=== PATIENT | male | born 1945 | race Caucasian/White ===

== ENCOUNTER 2018-01-12 06:13 | Inpatient (IN) | payer OTHER, MEDICARE ==
[2017-12-29 11:17] VITALS: BMI 35.0
[2017-12-29 11:17] LABS: BASO % 0.3 %; BASO ABS # 0.02 K/uL (0-0.2); EOS % 1.1 %; EOS ABS # 0.07 K/uL (0-0.5); HEMATOCRIT 46.3 % (42-52); HEMOGLOBIN 15.3 g/dL (14.0-18.0); IG# 0.02 K/uL (0.00-0.02); LYMPH % 28.6 %; LYMPH ABS # 1.74 K/uL (1.2-3.4); MEAN CORPUSCULAR HEMOGLOBIN 29.4 pg (25-34); MEAN PLATELET VOLUME 9.6 fL (7.4-10.4); MONO % 9.7 %; MONO ABS # 0.59 K/uL (0.11-0.59); NEUT ABS # 3.65 K/uL (1.4-6.5); PLATELET COUNT 195 K/uL (130-400); RED CELL DISTRIBUTION WIDTH CV 14.8 % (11.5-14.5); RED CELL DISTRIBUTION WIDTH SD 47.9 fL (36.4-46.3); WHITE BLOOD COUNT 6.09 K/uL (4.8-10.8)
[2017-12-29 11:25] LABS: INR 1.1 (0.9-1.1); PTT PATIENT 24.4 SECONDS (21.0-31.0)
[2017-12-29 11:32] LABS: HEMOGLOBIN A1C 5.4 % (4.5-5.6)
--- NOTE | 2017-12-29 11:58 | PAT Medication Instructions ---
Service Date December 29, 2017. Current Home Medication List Aspirin (Aspirin Ec), 81 MG PO HS Lisinopril (Zestril), 20 MG PO BID Meloxicam (Mobic), 15 MG PO PRN Metoprolol Tartrate (Lopressor) (Lopressor), 25 MG PO BID Pantoprazole (Protonix), 40 MG PO QAM Pravastatin (Pravachol ), 20 MG PO HS Medication Instructions For Your Scheduled Surgery -Check with your surgeon for instructions for: Meloxicam (Mobic), 15 MG PO PRN - Hold the following medications the morning of surgery: Lisinopril (Zestril), 20 MG PO BID - Take the following medications the morning of surgery with a sip of water: Metoprolol Tartrate (Lopressor) (Lopressor), 25 MG PO BID Pantoprazole (Protonix), 40 MG PO QAM - Take the following medications as scheduled the night before surgery: Aspirin (Aspirin Ec), 81 MG PO HS Lisinopril (Zestril), 20 MG PO BID Metoprolol Tartrate (Lopressor) (Lopressor), 25 MG PO BID Pravastatin (Pravachol ), 20 MG PO HS If you have any questions please call us at [phone] or [phone] or [phone]
--- NOTE | 2017-12-29 12:27 | DIAGNOSTIC IMAGING REPORT ---
CHEST 2 VIEWS ROUTINE CLINICAL HISTORY: PAT preoperative evaluation COMPARISON STUDY: No previous studies for comparison. FINDINGS: Mild cardia megaly. Fixed hiatal hernia. Diaphragms are smooth. The lungs are clear. IMPRESSION: Fixed hiatal hernia. Mild cardiomegaly. No acute process. The above report was generated using voice recognition software. It may contain grammatical, syntax or spelling errors. Electronically signed by: Caesar Eaton M.D. 12/29/2017 12:26 PM Dictated Date/Time: 12/29/2017 12:25 PM
[2017-12-29 12:34] LABS: ALBUMIN 3.5 gm/dl (3.4-5.0); CALCIUM 8.8 mg/dl (8.5-10.1); CREATININE 0.96 mg/dl (0.60-1.40); POTASSIUM 4.3 mmol/L (3.5-5.1)
--- NOTE | 2017-12-30 13:05 | HISTORY & PHYSICAL EXAMINATION ---
DATE OF ADMISSION: 01/12/2018 CHIEF COMPLAINT: Right hip pain. HISTORY OF PRESENT ILLNESS: Mr. Newell is a 72-year-old male who had his hip originally replaced in 1996 at [facility]. The patient has done well for several years. He recently began developing increased pain and instability. He also has chronic back pain. His hip pain is mostly located in the groin area. He rates this as 7/10. The patient has obvious signs of poly wear on recent x-rays and is now scheduled for acetabular revision of the right hip with Dr. Newell. PAST MEDICAL HISTORY: Hypertension, acid reflux and history of VT in 2007. He denies diabetes or DVT. PAST SURGICAL HISTORY: Cardiac stent, rotator cuff 2007, trigger finger 2007, rotator cuff repair 2005, hip replacement 1996, knee surgery 1966. SOCIAL HISTORY: The patient drinks 1-2 drinks per day. He denies tobacco use. He lives in a single story home. He is and retired. FAMILY HISTORY: Positive for CVA in his father. MEDICATIONS: Lisinopril 20 mg b.i.d., metoprolol 25 mg b.i.d., pravastatin 20 mg daily, pantoprazole 40 mg daily, meloxicam 15 mg daily, aspirin 81 mg daily. ALLERGIES: None. REVIEW OF SYSTEMS: See HPI. Ten other systems reviewed, all negative. PHYSICAL EXAMINATION: VITAL SIGNS: Height 5 feet 9 inches, weight 237 pounds, BMI 35. GENERAL: This is a well-developed, well-nourished male who is alert and oriented x3. Mood and affect are appropriate. HEENT: Normocephalic, atraumatic. Mucous membranes are moist and intact. NECK: Supple without lymphadenopathy. HEART: Regular rate and rhythm without murmurs, rubs or gallops. LUNGS: Clear to auscultation without wheezes or rhonchi. ABDOMEN: Soft and nontender. Bowel sounds are equal and active. EXTREMITIES: No ecchymosis, redness or warmth. Thigh and calf are soft and nontender. Previous incision is well healed. Range of motion causes some slight discomfort in the groin area. He walks with an antalgic gait. He is neurovascularly intact. X-RAY EXAMINATION: AP and lateral views show a right uncemented total hip arthroplasty. Femoral component appears to be well fixed. Acetabular component appears well fixed; however, he does have obvious poly wear noted on plain films. 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 PLAN: The patient will be admitted for a right total hip revision arthroplasty with Dr. Newell. We will plan on aspirin for DVT prophylaxis. The patient will likely not need much physical therapy upon discharge, but will reevaluate perioperatively.
[~2018-01-12] VITALS: Ht 175.3 cm; Wt 108.1 kg
[2018-01-12] VITALS (10 sets, daily range): BP systolic 107–168; BP diastolic 71–99; PULSE 58–88; TEMP 36.5–36.8; O2SAT 94–98; Ht 175.3 cm; Wt 108.1 kg
[~2018-01-12 06:13] MED LIST: ACETAMINOPHEN 500 MG TAB PO SCH; ASPI81TA28 PO; CEFAZOLIN 2000MG IV PUSH 15 ML IV SCH; CeleBREX 200 MG CAP PO SCH; DEXAMETHASONE 4 MG TAB PO SCH; FAMOTIDINE 20 MG TAB PO SCH; GABAPENTIN 300 MG CAP PO SCH; LACTATED RINGER'S 1000ML 1,000 ML IV SCH; LACTATED RINGER'S 1000ML 500 ML IV SCH; LISI-725 PO; MELO7.5T5 PO; METO25TA56 PO; METOCLOPRAMIDE HCL 10 MG TAB PO SCH; PANT40TA PO; PRAV20TA PO; ROPIVACAINE 5MG/ML 30 ML 150 MG, BUPIVACAINE 0.5% MPF INJ 30 ML, EpINEphrine HCL INJ 0.... INFIL SCH
[2018-01-12] MEDS ORDERED: BUPIVACAINE 0.5 % 5 MG/1 ML PF 10ML VIAL ONE (06:27)
[2018-01-12] MEDS ORDERED: FENTANYL CITRATE INJ 50 MCG/1 ML 2 ML VIAL ONE (06:43)
[2018-01-12] MEDS ORDERED: MIDAZOLAM HCL 1 MG/ML 2ML VIAL ONE (06:43)
[2018-01-12] MEDS ORDERED: LIDOCAINE HCL 2% 2 ML VIAL (20MG/ML) ONE (06:44)
[2018-01-12] MEDS ORDERED: DEXAMETHASONE SOD INJ 4 MG/ML VIAL ONE (06:44)
[2018-01-12] MEDS ORDERED: PROPOFOL IV EMULSION 10 MG/ML 20 ML VIAL ONE ×4 (06:44→10:00)
[2018-01-12] MEDS ORDERED: ONDANSETRON INJ 2 MG/ML 2 ML VIAL ONE (06:44)
[2018-01-12] MEDS ORDERED: FENTANYL CITRATE INJ 50 MCG/1 ML 2 ML VIAL IV PRN (06:45)
[2018-01-12] MEDS ORDERED: ONDANSETRON INJ 2 MG/ML 2 ML VIAL IV PRN ×2 (06:45→10:30)
[2018-01-12] MEDS ORDERED: ATROPINE SULFATE 0.1 MG/ML 5ML SYR IV PRN (06:45)
[2018-01-12] MEDS ORDERED: EpHEDrine SULFATE INJ 50 MG/ML AMP IV PRN (06:45)
[2018-01-12] MEDS ORDERED: BACITRACIN 50000 UNIT VIAL ONE (06:56)
[2018-01-12] MEDS ORDERED: ORTHO JOINT ANESTHETIC ONE (06:56)
[2018-01-12] MEDS ORDERED: POVIDONE-IODINE OP SOLN 30 ML BTL ONE (06:56)
--- NOTE | 2018-01-12 07:06 | History & Physical Bridge Note ---
H&P Re-Evaluation Bridge Note: I have examined the patient, reviewed the History & Physical and in the interval since the performance of the History & Physical I have noted the following changes of clinical significance: No changes noted
[2018-01-12] MEDS: TRANEXAMIC ACID INJ 1,000 MG x 2 Bags IV SCH ×4 (07:37→12:47)
[2018-01-12] MEDS ORDERED: EpHEDrine SULFATE INJ 50 MG/ML AMP ONE ×2 (08:12→09:26)
[2018-01-12] MEDS ORDERED: PHENYLEPHRINE 100MCG/ML 5ML SYR ONE (08:56)
[2018-01-12] MEDS ORDERED: ALUMINUM/MAGNESIUM/SIMETH (MAALOX MAX) 30 ML UDC PO PRN (10:30)
[2018-01-12] MEDS ORDERED: OXYCODONE HCL IR 5 MG TAB (IMMEDIATE RELEASE) PO PRN (10:30)
[2018-01-12] MEDS ORDERED: MAGNESIUM HYDROXIDE SUSP 30 ML UDC PO PRN (10:30)
[2018-01-12] MEDS ORDERED: CEFAZOLIN IV 2,000 MG in DEXTROSE 5% 50ML 50 ML IV SCH (10:30)
[2018-01-12] MEDS ORDERED: BISACODYL 10 MG SUPP PR PRN (10:30)
[2018-01-12] MEDS ORDERED: MoRPHine SULFATE 4 MG/ML 1 ML CARP\\VIAL IV PRN (10:30)
--- NOTE | 2018-01-12 10:40 | Discharge Instructions ---
Discharge Instructions Date of Service January 12, 2018. Admission Reason for Admission: Right Hip Mechanical Loosening Of Internal Prosthe Discharge Discharge Diagnosis / Problem: RIGHT ACETABULAR WEAR LEAH ; RIGHT HIP PAIN Discharge Goals Goal(s): Decrease discomfort, Improve function Activity Recommendations Activity Limitations: per Instructions/Follow-up section Weightbearing Status: Right weightbearing (as tolerated) . Instructions / Follow-Up Instructions / Follow-Up ACTIVITY RECOMMENDATIONS: SELF CARE INSTRUCTIONS AFTER TOTAL HIP REPLACEMENT Until the incision and soft tissues around your hip have healed, there is a possibility that the hip prosthesis could dislocate. A. Observe the following precautions to prevent dislocation: 1. Don't bend your hip greater than 90 degrees. 2. Avoid crossing your legs or ankles while standing or lying. 3. Sit with your feet placed 6 inches apart. 4. When sitting, keep your knees below your hips. Sit on a firm surface, avoid deep, soft chairs and couches. Use an elevated toilet seat in the bathroom. 5. Don't bend over at the waist. Use a long handled shoehorn and a sock aid to help you put on your shoes and socks. A crm solution architect can help you grain picker objects that are too high or too low to reach. 6. Keep car riding to a minimum for at least one month after surgery. B. Your balance may be shaky for a while. Use crutches or a walker until directed by your doctor. C. Use hand rails when walking on stairs. D. Wear low heeled shoes with non-slip soles. E. Be sure that your floors are free of things that could trip you - throw rugs , electrical cords, small objects. Avoid wet and waxed floors, especially with crutches and canes. F. Try to walk several times a day with rest periods between. G. Continue with all the exercises taught to you in the hospital. Again, make walking a part of your daily routine. SPECIAL CARE INSTRUCTIONS: VERY IMPORTANT TO READ AND REVIEW A. You may still be at risk for phlebitis and blood clots. 1. Wear surgical stockings (KEELY hose) for 2 weeks after surgery to improve circulation and reduce swelling. 2. Take Aspirin 81mg twice daily for 4 weeks or as directed by your doctor. This is your blood thinner. 3. High risk patients may be prescribed a stronger blood thinner if necessary. 4. If you are on Coumadin normally, your family doctor/teleservices representative should monitor your blood work. Expect a phone call the day of or the day after bloodwork is drawn to adjust your dosage. B. You must take antibiotics before having dental work, bladder, bowel and other surgery. Your doctor will provide you with a permanent card to carry describing precautions. C. Call [facility] if you have a fever, redness or swelling around the incision, cloudy drainage from incision, or sudden increase in pain in your hip, not relieved by your regular pain medication. D. Please call the office at if you have any concerns or questions about your operation or recovery. * YOU MAY SHOWER, NO TUB BATHS UNTIL CLEARED BY YOUR DOCTOR. * WEAR KEELY HOSE 20 HOURS PER DAY FOR 2 WEEKS. * YOU SHOULD USE A WALKER OR CRUTCHES FOR 2-4 WEEKS. THIS WILL HELP PREVENT STRAIN ON YOUR HIP MUSCLE AND ALLOW IT TO HEAL PROPERLY. YOU MAY WEAN TO A CANE TOLERATED. * MOST PATIENTS WILL HAVE HOME NURSING FOR THERAPY. IF YOU DECIDE TO DO OUTPATIENT PHYSICAL THERAPY, PLEASE SCHEDULE THIS 3 TIMES PER WEEK. * Silverlon- This is a large adhesive bandage that contains silver ions. This helps your incision heal by fighting off bacteria and protecting it from the outside environment. You are permitted to shower with this dressing. This will remain on your incision for 7 days and then should be removed. Some visible blood or drainage through the dressing window is normal. If there is significant drainage or leaking noted before the 7 days notify your doctor's office immediately. Once removed, keep incision clean and dry. If there is any drainage or redness noted, please call your surgeon. * You have a Zipline Closure System. As noted below, this keeps your incision closed. Change the dressing daily. Keep the wound covered with a dressing as it has the potential to snag on your clothing. The Zipline will remain on for a total of 2 weeks. Do not remove it! You may shower with this on. Do not soak it; no tub baths. You will be given instructions by nursing staff at the time of discharge to care for your Zip Closure System. This devices uses plastic straps to keep your incision closed and protected throughout your recovery. If you have any questions please refer to these instructions first. . FOLLOW UP VISIT: If appointment is not already scheduled: Please call [facility] to make a follow-up appointment for 2 weeks after your surgery at . Current Hospital Diet Patient's current hospital diet: AHA Diet (Heart Healthy) Discharge Diet Recommended Diet: AHA Diet (Heart Healthy) Procedures Procedures Performed: Right Hip: Total Hip Revsion Arthroplasty, Poly Exchange Pending Studies Studies pending at discharge: yes List of pending studies: Final Right Hip Joint Cultures Laboratory Results Hemoglobin A1c Test 12/29/17 11:04 Range/Units Estimated Average Glucose 108 mg/dl Hemoglobin A1c 5.4 4.5-5.6 % Medical Emergencies . Who to Call and When: Medical Emergencies: If at any time you feel your situation is an emergency, please call 911 immediately. . Non-Emergent Contact Non-Emergency issues call your: Surgeon Call Non-Emergent contact if: temperature is above 101.5, your pain is not controlled, your pain is worsening, wound has increased drainage, wound has increased redness . "Provider Documentation" section prepared by Marv Holt. . [place] Drug Monitoring Program Search Results: patient reviewed within database, no issues identified
--- NOTE | 2018-01-12 10:49 | Anesthesiology Progress Note ---
Anesthesia Post Op Note Date & Time January 12, 2018 at 10:49 Vital Signs Pain Intensity: 0 Vital Signs Past 12 Hours Date Time Temp Pulse Resp B/P (MAP) Pulse Ox O2 Delivery O2 Flow Rate FiO2 01/12/18 10:35 67 20 14/65 99 Oxymask 10 01/12/18 10:26 36.1 70 20 108/62 96 Oxymask 10 01/12/18 06:40 36.6 58 20 168/99 97 Room Air Notes Mental Status: alert / awake / arousable, participated in evaluation Pt Amnestic to Procedure: Yes Nausea / Vomiting: adequately controlled Pain: adequately controlled Airway Patency, RR, SpO2: stable & adequate BP & HR: stable & adequate Hydration State: stable & adequate Neuraxial Anesthesia: was administered, sensory block is resolving Anesthetic Complications: no major complications apparent
--- NOTE | 2018-01-12 10:54 | OPERATIVE REPORT ---
DATE OF OPERATION: 01/12/2018 PREOPERATIVE DIAGNOSIS: Acetabular wear, right total hip. POSTOPERATIVE DIAGNOSIS: Acetabular wear, right total hip. PROCEDURE: Revision acetabular liner and femoral head, right total hip. SURGEON: Leonardo Newell MD SUPERVISOR PAPER MACHINE: LUCY Clarke ANESTHESIA: Spinal. COMPLICATIONS: None. DESCRIPTION OF PROCEDURE: Following induction of adequate spinal anesthesia, the patient was placed in the left lateral decubitus position and right Ghazala-Langenbeck incision was reopened. Subcutaneous tissue was sharply dissected. Electrocautery was used for hemostasis. The fascia was incised throughout the length of the wound and electrocautery was used along the posterior aspect of the femur to gain access to the joint. Clear yellow joint fluid was cultured and a Gram stain showed no evidence of bacteria. The hip was noted to have an excessive amount of thick, tough scar tissue surrounding this. A sharp dissection was carried to remove scar tissue and mobilized hip as much as possible. After dislocating hip, the femoral head was removed and attention was turned to the acetabulum using retractors. The acetabulum was exposed. Care being taken to avoid damage to the sciatic nerve. There was significant thickened scarring throughout the hip and a fairly robust traction was required to gain access to the acetabulum. The ring was able to be spread with a hemostat and a Schmidt was used to lever the acetabular liner out. The decision was made to go with a 36 mm acetabular liner. This was obtained and impacted into position. Trial reduction was carried out and a +3.5 mm femoral neck length was chosen as the size to be used. A ceramic femoral head with a collar was impacted into position and the hip was relocated. It was found to be stable in all planes without any femoral neck impingement as existed preoperatively with a 28 mm head that had a collar. The hip was irrigated with pulsatile irrigation and the Hemovac drain was placed. A Betadine soak was utilized and the fascia was closed using #1 Vicryl over a Hemovac drain. Subcutaneous tissue was closed using 0 Dexon. Skin was closed with denton. Sterile dressing of Adaptic, 4x4s, ABDs, and foam tape were applied. The patient tolerated the procedure well. I attest to the content of the Intraoperative Record and any orders documented therein. Any exception s are noted below.
--- NOTE | 2018-01-12 11:15 | DIAGNOSTIC IMAGING REPORT ---
AP PELVIS AND RIGHT HIP 2 VIEWS CLINICAL HISTORY: IN PACU - A/P PELVIS and LATERAL HIP INCLUDING ALL OF IMPLANT COMPARISON STUDY: None FINDINGS: There is a bipolar right hip arthroplasty. There is no dislocation. No acute fractures are visualized. Overlying surgical drains are evident. 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 IMPRESSION: Postsurgical changes of a right hip arthroplasty. No evidence of dislocation. Electronically signed by: Kasi Mcdowell M.D. 01/12/2018 11:14 AM Dictated Date/Time: 01/12/2018 11:13 AM
[2018-01-12] MEDS: D5W AND 1/2NSS + 20MEQ KCL 1,000 ML IV SCH ×2 (12:02→22:00)
[2018-01-12] MEDS: FERROUS GLUCONATE 324 MG TAB PO SCH ×2 (13:02→18:02)
[2018-01-12] MEDS: ACETAMINOPHEN 500 MG TAB PO SCH ×2 (13:03→18:02)
[2018-01-12] MEDS: CEFAZOLIN IV 2,000 MG in SYRINGE 0 ML IV SCH ×2 (16:06→23:27)
[2018-01-12] MEDS: TRAMADOL HCL 50 MG TAB PO PRN (16:06)
[2018-01-12] MEDS: CeleBREX 200 MG CAP PO SCH (20:45)
[2018-01-12] MEDS: METOPROLOL TARTRATE 25 MG TAB PO SCH (20:45)
[2018-01-12] MEDS: ASPIRIN 81 MG ECTAB PO SCH (20:45)
[2018-01-12] MEDS: LISINOPRIL 20 MG TAB PO SCH (20:45)
[2018-01-12] MEDS: DOCUSATE SODIUM 100 MG CAP PO SCH (20:45)
[2018-01-12] MEDS ORDERED: PRAVASTATIN SOD 20 MG TAB PO SCH (21:00)
[2018-01-12] MEDS ORDERED: SENNA 8.6 MG TAB PO SCH (21:00)
[2018-01-13] MEDS: ACETAMINOPHEN 500 MG TAB PO SCH ×2 (03:01→10:22)
[2018-01-13 03:04] VITALS: BP 123/73; PULSE 67; TEMP 36.4; O2SAT 96
[2018-01-13 05:58] LABS: CALCIUM 7.8 mg/dl (8.5-10.1); CREATININE 0.86 mg/dl (0.60-1.40); POTASSIUM 4.6 mmol/L (3.5-5.1)
[2018-01-13 06:00] LABS: BASO % 0.1 %; BASO ABS # 0.01 K/uL (0-0.2); HEMATOCRIT 33.8 % (42-52); HEMOGLOBIN 11.3 g/dL (14.0-18.0); IG# 0.03 K/uL (0.00-0.02); LYMPH % 10.1 %; LYMPH ABS # 1.16 K/uL (1.2-3.4); MEAN CELL VOLUME 87.8 fL (80-100); MEAN CORPUSCULAR HEMOGLOBIN 29.4 pg (25-34); MEAN CORPUSCULAR HGB CONC 33.4 g/dl (32-36); MEAN PLATELET VOLUME 9.6 fL (7.4-10.4); MONO ABS # 1.61 K/uL (0.11-0.59); NEUT % 75.5 %; NEUT ABS # 8.67 K/uL (1.4-6.5); PLATELET COUNT 188 K/uL (130-400); RED CELL DISTRIBUTION WIDTH CV 15.1 % (11.5-14.5); RED CELL DISTRIBUTION WIDTH SD 48.2 fL (36.4-46.3); WHITE BLOOD COUNT 11.48 K/uL (4.8-10.8)
[2018-01-13] MEDS: D5W AND 1/2NSS + 20MEQ KCL 1,000 ML IV SCH (07:26)
--- NOTE | 2018-01-13 07:45 | Orthopedic Progress Note ---
Orthopedic Progress Note Date of Service January 13, 2018. Subjective Post OP Day: 1 Reports: feeling well (Pt "ready to go home") Objective calves soft nontender, N/V intact, dressing C/D/I (Hemovac in place), toes mobile Date Time Temp Pulse Resp B/P (MAP) Pulse Ox O2 Delivery O2 Flow Rate FiO2 01/13/18 03:04 36.4 67 18 123/73 (90) 96 Room Air 01/12/18 23:25 Room Air 01/12/18 22:57 36.7 62 16 107/71 (83) 95 Room Air 01/12/18 20:39 73 111/74 (86) 01/12/18 19:23 36.8 88 18 114/73 (87) 94 Room Air 01/12/18 16:00 Room Air 01/12/18 15:08 36.6 67 16 114/74 (87) 96 Room Air 01/12/18 14:15 72 16 131/79 (96) 96 Room Air 01/12/18 13:14 65 16 118/72 (87) 96 Nasal Cannula 2.0 01/12/18 12:15 64 16 128/84 (99) 94 Nasal Cannula 2.0 01/12/18 11:45 63 16 123/80 (94) 98 Nasal Cannula 2.0 01/12/18 11:15 Nasal Cannula 2.0 01/12/18 11:15 36.5 62 21 115/75 (88) 95 Nasal Cannula 2.0 01/12/18 11:15 95 Nasal Cannula 2.0 01/12/18 10:55 36.5 67 20 106/76 95 Nasal Cannula 2 01/12/18 10:45 67 20 96/64 95 Nasal Cannula 2 01/12/18 10:35 67 20 104/65 99 Oxymask 10 01/12/18 10:26 36.1 70 20 108/62 96 Oxymask 10 Laboratory Results 24 Hours: Test 01/13/18 05:00 White Blood Count 11.48 K/uL Red Blood Count 3.85 M/uL Hemoglobin 11.3 g/dL Hematocrit 33.8 % Mean Corpuscular Volume 87.8 fL Mean Corpuscular Hemoglobin 29.4 pg Mean Corpuscular Hemoglobin Concent 33.4 g/dl Platelet Count 188 K/uL Mean Platelet Volume 9.6 fL Neutrophils (%) (Auto) 75.5 % Lymphocytes (%) (Auto) 10.1 % Monocytes (%) (Auto) 14.0 % Eosinophils (%) (Auto) 0.0 % Basophils (%) (Auto) 0.1 % Neutrophils # (Auto) 8.67 K/uL Lymphocytes # (Auto) 1.16 K/uL Monocytes # (Auto) 1.61 K/uL Eosinophils # (Auto) 0.00 K/uL Basophils # (Auto) 0.01 K/uL Assessment & Plan Assessment: 72 yo male stable POD #1 s/p right LEAH revision femoral head and acetabular poly Plan: 1. Med management 2. DVT prophylaxis- ASA, SCDs 3. PT/OT 4. D/C planning- home w/out services
[2018-01-13] MEDS ORDERED: ACET-24 PO (07:48)
[2018-01-13] MEDS ORDERED: RXC5 PO (07:48)
[2018-01-13] MEDS ORDERED: ASPI-320 PO (07:48)
[2018-01-13] MEDS ORDERED: ULT50X PO (07:48)
--- NOTE | 2018-01-13 07:54 | Anesthesiology Progress Note ---
Anesthesia Post Op Note Date & Time January 13, 2018 at 07:54 Vital Signs Pain Intensity: 4.0 Vital Signs Past 12 Hours Date Time Temp Pulse Resp B/P (MAP) Pulse Ox O2 Delivery O2 Flow Rate FiO2 01/13/18 07:20 Room Air 01/13/18 03:04 36.4 67 18 123/73 (90) 96 Room Air 01/12/18 23:25 Room Air 01/12/18 22:57 36.7 62 16 107/71 (83) 95 Room Air 01/12/18 20:39 73 111/74 (86) Notes Mental Status: alert / awake / arousable, participated in evaluation Pt Amnestic to Procedure: Yes Nausea / Vomiting: adequately controlled Pain: adequately controlled Airway Patency, RR, SpO2: stable & adequate BP & HR: stable & adequate Hydration State: stable & adequate Neuraxial Anesthesia: was administered, sensory block resolved Anesthetic Complications: no major complications apparent
[2018-01-13 08:03] VITALS: BP 137/80; PULSE 61; TEMP 36.7; O2SAT 97
[2018-01-13 08:40] VITALS: BP 111/65; PULSE 67
[2018-01-13] MEDS: FERROUS GLUCONATE 324 MG TAB PO SCH (08:42)
[2018-01-13] MEDS: LISINOPRIL 20 MG TAB PO SCH (08:42)
[2018-01-13] MEDS: DOCUSATE SODIUM 100 MG CAP PO SCH (08:42)
[2018-01-13] MEDS: ASPIRIN 81 MG ECTAB PO SCH (08:43)
[2018-01-13] MEDS: CeleBREX 200 MG CAP PO SCH (08:43)
[2018-01-13] MEDS: METOPROLOL TARTRATE 25 MG TAB PO SCH (08:43)
[2018-01-13] MEDS ORDERED: MULTIVITAMIN TAB PO SCH (09:00)
[2018-01-13] MEDS ORDERED: PANTOprazole SOD 40 MG TAB PO SCH (09:00)
--- NOTE | 2018-01-13 09:23 | Clinical Documentation Query ---
CLINICAL DOCUMENTATION QUERY 72 yo male admitted with a right total hip revision arthroplasty. EBL and hemovac drainage = 680 ml. Hgb initially 15.3 and trended down to 11.3. Patient was typed and screened for PRBCs. In your clinical opinion is this patient being managed for: ( ) Expected acute blood-loss anemia ( ) Not Agree ( ) Other explanation of clinical findings (No explanation is considered a No Response) ( ) Unable to determine ( ) Need to Discuss (Phone CDS or qliq) (No discussion is considered a No Response) The medical record reflects the following clinical findings, treatment, and risk factors. Clinical Indicators: As above Treatment: Type and screen, serial H&H, IV hydration Risk Factors: Age, s/p surgical intervention with blood/fluid loss. Please clarify and document your clinical opinion in the progress notes and discharge summary. Terms such as "probable", "suspected", "likely", "questionable", "possible", or "still to be ruled out" are acceptable. IF IN AGREEMENT, YOU MUST DOCUMENT ABOVE DIAGNOSTIC STATEMENT IN DAILY PROGRESS NOTES AND DISCHARGE SUMMARY. This document is not part of the patient's record. Thank You, Mariely Morfin RN [phone]
[2018-01-13] MEDS: TRAMADOL HCL 50 MG TAB PO PRN (10:22)
[2018-01-13 10:54] VITALS: BP 111/65; PULSE 67; TEMP 36.7; O2SAT 97
--- NOTE | 2018-01-16 21:01 | DISCHARGE SUMMARY ---
DISCHARGE DIAGNOSIS: Acetabular wear, right total hip arthroplasty. SECONDARY DIAGNOSES: Hypertension, gastroesophageal reflux disease, coronary artery disease with history of myocardial infarction in 2008. CONSULTS: None. COMPLICATIONS: None. PROCEDURES: Revision acetabular liner and femoral head, right total hip arthroplasty by Dr. Newell on 01/12/2018. BRIEF HISTORY: As dictated in the history and physical. HOSPITAL SUMMARY: The patient was admitted on the above date and had the above-noted surgery performed, which he tolerated well. On the first postoperative day, patient was feeling well and the patient was stating that he was ready to go home. Calves were soft and nontender. Neurovascularly intact. Dressings were clean, dry, and intact. Toes were mobile. Vital signs were stable. He is afebrile. Hemoglobin was 11.3 and he was started on physical therapy protocol, continued on DVT prophylaxis and pain management. The patient progressed well with his PT and had achieved ambulating 200 feet x1 with a rolling walker, went up and down a 6-inch step x3 with a hand rail, was remaining stable and pain was controlled and it was felt he could be discharged to home on 01/13/2018. For further review, please see chart. LAB AND X-RAY DATA: As per chart. DISCHARGE INSTRUCTIONS: The patient was discharged home in satisfactory condition on 01/13/2018. DIET: Heart healthy. ACTIVITY: Weightbearing as tolerated, right lower extremity. Follow LEAH instruction sheets and special care instructions as noted. Follow up with Dr. Newell in 2 weeks. The patient to call for appointment if one has not been made for you. DISCHARGE MEDICATIONS: Acetaminophen 1000 mg p.o. q. 8 hours, aspirin 81 mg p.o. b.i.d., oxycodone 5-10 mg p.o. q. 4-6 hours p.r.n., tramadol 50-100 mg p.o. q. 4 hours p.r.n. Resume home meds as listed. After 30 days, resume once daily dosing of your aspirin and stop taking Meloxicam.
== END 2018-01-13 12:45 | disposition home or self-care (01) | DRG 468 ==
LOC: C.ACU 06:13 → C.3E 06:50 → ENRESERV 10:53
PROC: 0SPR0JZ Removal of Synthetic Substitute from Right Hip Joint, Femoral Surface, Open Approach (ICD-10-PCS; principal; 2018-01-12 08:15)
PROC: 0SP909Z Removal of Liner from Right Hip Joint, Open Approach (ICD-10-PCS; principal; 2018-01-12 08:15)
PROC: 0SUA09Z Supplement Right Hip Joint, Acetabular Surface with Liner, Open Approach (ICD-10-PCS; principal; 2018-01-12 08:15)
PROC: 0SRR03A Replacement of Right Hip Joint, Femoral Surface with Ceramic Synthetic Substitute, Uncemented, Open Approach (ICD-10-PCS; principal; 2018-01-12 08:15)
DX: T84.060A Wear of articular bearing surface of internal prosthetic right hip joint, initial encounter (principal); I10 Essential (primary) hypertension; K21.9 Gastro-esophageal reflux disease without esophagitis; I25.2 Old myocardial infarction; Z98.890 Other specified postprocedural states; Z72.89 Other problems related to lifestyle; Z79.82 Long term (current) use of aspirin; Z79.899 Other long term (current) drug therapy; Y79.1 Therapeutic (nonsurgical) and rehabilitative orthopedic devices associated with adverse incidents; Y83.1 Surgical operation with implant of artificial internal device as the cause of abnormal reaction of the patient, or of later complication, without mention of misadventure at the time of the procedure; Z96.641 Presence of right artificial hip joint